=== PATIENT | male | born 1960 | race Caucasian/White ===

== ENCOUNTER → 2019-02-01 | Outpatient (CLI) | payer MEDICAID | LOC: M.MRI 16:45 | DX: M75.121 Complete rotator cuff tear or rupture of right shoulder, not specified as traumatic (principal) ==

== ENCOUNTER → 2019-04-22 | Outpatient (CLI) | payer MEDICAID | LOC: M.RAD 14:43 | DX: M19.012 Primary osteoarthritis, left shoulder (principal) ==

== ENCOUNTER → 2019-08-24 | Outpatient (CLI) | payer MEDICAID | LOC: M.LAB 08:30 → M.CT 08:30 → M.LAB 08:43 → M.CT 09:30 | PROVIDERS: ATTEND Surgery | DX: K50.90 Crohn's disease, unspecified, without complications (principal); R22.9 Localized swelling, mass and lump, unspecified ==

== ENCOUNTER → 2019-11-14 | Outpatient (CLI) | payer MEDICAID ==
[~2019-11-14] MED LIST: DULOXETINE HCL60 MG PO; INDERAL60 MG PO; OMEPRAZOLE 20 M20 M1 PO; PREGABALIN50 MG PO; QUETIAPINE FUM200 MG PO; STELARA90 MG/1 ML SUBQ; TIZANIDINE4 MG/1 TA1 PO
== END ==
LOC: M.LAB 16:30
PROVIDERS: ATTEND Surgery
DX: Z01.812 Encounter for preprocedural laboratory examination (principal); Z20.828 Contact with and (suspected) exposure to other viral communicable diseases

== ENCOUNTER → 2019-11-18 | Day surgery (SDC) | payer MEDICAID ==
[~2019-11-18] MED LIST changes: +LORCET 5-325 M1 EACH PO
[2019-11-18 06:59] LABS: HEMATOCRIT 45.2 % (42.0-52.0); HEMOGLOBIN 15.3 gm/dL (14.0-18.0); MCH 30.9 pg (26.0-34.0); MCHC 33.8 g/dL (28.0-37.0); MCV 91.4 fL (80.0-100.0); MPV 7.3 fl. (7.2-11.1); RBC 4.95 mil/uL (4.50-6.00); RDW-CV 16.4 % (10.5-14.5); WBC 7.2 thou/uL (4.0-11.0)
[2019-11-18 07:20] LABS: CALCIUM 8.1 mg/dL (8.5-10.1)
[2019-11-18 07:30] LABS: ALBUMIN 3.4 g/dL (3.4-5.0); TOTAL BILIRUBIN 0.4 mg/dL (<0.1-1.0)
--- NOTE | 2019-11-18 10:32 | EKG ---
[place] [address] ELECTROCARDIOGRAM REPORT Name: CLAUDETTE BRIAN Room: [facility].#: [id number] Admission: 11/18/19 Attend Phys: Divya Mendieta, Discharge: Date of : 62 Date of Service: 11/18/19722 Report #: [id number] THIS REPORT FOR: //name// [facility] Test Date: 2019-11-18 Test Time: 07:23:33 Pat Name: CLAUDETTE BRIAN Department: Room: Gender: Gel [employer]at Sprayer: : 1960 Requested By: Divya Mendieta Order Number: [id number] Reading MD: Phill Viera Measurements Intervals [place] Rate: 50 P: 47 [place]: 182 QRS: -6 QRSD: 101 T: 46 QT: 435 QTc: 397 Interpretive Statements Sinus rhythm Probable left atrial enlargement No previous ECG available for comparison Electronically Signed On 11-18-2019 10:32:46 CDT by Phill Viera [email or web address] <ELECTRONICALLY SIGNED> By: Phill Viera MD, [facility] 11/18/19 1032 2 2 Phill Viera MD, FACC /EPI
--- NOTE | 2019-11-23 11:07 | PATH ---
[address] [address] PATHOLOGY RPT PROCEDURE Name: KARL JAY Room: [facility]..#: [id number] Admission: 11/18/19 Date of : 62 Discharge: Report #: [id number] Path Case #: [id number] [facility] Accession Number: [id number] . 01 Material submitted: . back - RIGHT BACK MASS. Modifiers: right . 01 Clinical history: . BACK MASS . 02 Diagnosis: Right back mass: - Consistent with lipoma. (MEETA:khurram; 11/22/2019) MBR 11/22/2019 1542 Local . 02 Electronically signed: . Mohamud Conley MD, Pathologist NPI- [id number] . 01 Gross description: . The specimen is received in formalin, labeled "Karl Jay, right back mass" and consists of multiple irregular segments of yellow lobulated tissue measuring 8.8 x 6.4 x 3.6 cm. Sectioning reveals focal hemorrhage. Varnish Thinner sections are submitted in A1-A3. (SDY; 11/21/2019) SYU/SYU 11/22/2019 1541 Local . 02 Pathologist provided ICD-10: R22.2 . 02 CPT . 333257 Specimen Comment: A courtesy copy of this report has been sent to [phone] Specimen Comment: [phone] Specimen Comment: Report sent to / DR ANGELA Performed at: [address], [place], [place] [id number] MD Jose Carlos Anne MD Phone: [phone] Performed at: 02 [facility] [address], [place], [place] [id number] MD Mohamud Conley MD Phone: [phone]
--- NOTE | 2019-12-01 17:08 | OP ---
[address] [address] OPERATIVE REPORT Name: CLAUDETTE BRIAN Room: [facility].[place].#: [id number] Admission: 11/18/19 Attend Phys: Divya Mendieta DO Discharge: Date of : 62 Report #: [id number] THIS REPORT FOR: //name// cc: John Noyola MD, David L. MD ~ CC: Divya Noyola DATE OF SERVICE: 11/18/2019 PREOPERATIVE DIAGNOSIS: Right lower back mass. POSTOPERATIVE DIAGNOSIS: Right lower back subfascial mass. SURGEON: Divya Mendieta D.O. ANESTHESIA: General endotracheal. PROCEDURE: Excision of right lower back subfascial mass. SPECIMENS: Right back mass (8.4 x 7.9 x 2.3 cm). ESTIMATED BLOOD LOSS: 10 mL. COMPLICATIONS: None. INDICATIONS FOR THE PROCEDURE: The patient is a 59-year-old gentleman who presented to my office with complaints of an enlarging right lower back mass, which was causing increasing pain and discomfort. Imaging was performed without identifiable source; however, there was a palpable mass present. The patient has Crohn's and therefore the timing of his procedure was coordinated with his Solera injections. The patient was seen and examined. He was discussed the procedure including risks, benefits, and alternatives. All questions were answered to patient's satisfaction, informed consent was obtained. DESCRIPTION OF PROCEDURE: After the patient was brought back to the operating room and placed in supine position, general anesthesia was induced. SCDs were placed on bilateral lower extremities and prophylactic antibiotics were administered. Next, after a timeout was performed and the patient was placed in the left lateral decubitus position, the area was prepped and draped in the usual sterile fashion. Next, a 6-cm transverse incision was created with a #15 blade scalpel. Dissection was carried down to the subcutaneous tissues using Bovie cautery. Using palpation with an index finger, there was noted to be a firm mass deep to the subcutaneous tissue. The subcutaneous plane was opened noting the anterior fascia of the muscles. This was incised with Bovie cautery. Using finger dissection, a large multilobulated [place] [address] OPERATIVE REPORT Name: CLAUDETTE BRIAN Room: [facility].#: [id number] Admission: 11/18/19 Attend Phys: Divya Mendieta DO Discharge: Date of : 62 Report #: [id number] This was circumferentially dissected free from all of its surrounding tissues. The blood supply was then cauterized using Bovie cautery. Once the mass was freed, it was measured on the back table and measured 9.4 x 7.9 x 2.3 cm in size. At this time, the wound was then further palpated noting no additional firm masses within the region. The area was copiously irrigated with saline. Intermediate layered closure was then performed first reapproximating the fascia with a 3-0 Vicryl in an interrupted fashion, 3-0 Vicryl for a deep subcutaneous stitch as well as in the deep dermal plane as well as a 4-0 Monocryl in a subcuticular fashion. The area was then cleaned. Local anesthetic was infiltrated into the surgical sites. Dermabond was applied for sterile dressing. All sponge, instrument count was reported as correct at the end of the case. The patient tolerated the procedure well without any complications. He was awakened from anesthesia in the operating room and taken to PACU in stable condition for further recovery. <ELECTRONICALLY SIGNED> By: Divya Mendieta DO 12/01/19 1708 [id number] [id number] Mendieta DO /nt
== END | disposition home or self-care (01) ==
LOC: M.SUR
PROVIDERS: ATTEND Surgery
DX: D17.1 Benign lipomatous neoplasm of skin and subcutaneous tissue of trunk (principal); K50.90 Crohn's disease, unspecified, without complications; F32.9 Major depressive disorder, single episode, unspecified; K21.9 Gastro-esophageal reflux disease without esophagitis; G47.00 Insomnia, unspecified; Z98.890 Other specified postprocedural states; Z79.899 Other long term (current) drug therapy; Z88.0 Allergy status to penicillin; Z88.8 Allergy status to other drugs, medicaments and biological substances

== ENCOUNTER → 2019-12-23 | Outpatient (CLI) | payer MEDICAID | LOC: M.MRI 04-15 17:30 | PROVIDERS: ATTEND Internal Medicine | DX: S46.812A Strain of other muscles, fascia and tendons at shoulder and upper arm level, left arm, initial encounter (principal); X58.XXXA Exposure to other specified factors, initial encounter; Y93.89 Activity, other specified; Y92.89 Other specified places as the place of occurrence of the external cause; Y99.8 Other external cause status ==

== ENCOUNTER → 2020-01-30 | Outpatient (CLI) | payer MEDICAID ==
[~2020-01-30] MED LIST changes: +AMBIEN 10 MG TA10 MG PO; +PERCOCET 5-3251 EACH PO
== END ==
LOC: M.LAB 14:00
PROVIDERS: ATTEND Orthopaedic Surgery
DX: Z01.812 Encounter for preprocedural laboratory examination (principal); Z20.828 Contact with and (suspected) exposure to other viral communicable diseases

== ENCOUNTER → 2020-02-02 | Day surgery (SDC) | payer MEDICAID ==
[2020-02-02 11:27] LABS: HEMATOCRIT 46.4 % (42.0-52.0); HEMOGLOBIN 15.1 gm/dL (14.0-18.0); MCH 30.2 pg (26.0-34.0); MCHC 32.6 g/dL (28.0-37.0); MCV 92.8 fL (80.0-100.0); MPV 7.4 fl. (7.2-11.1); RBC 5.01 mil/uL (4.50-6.00); RDW-CV 15.4 % (10.5-14.5); WBC 5.1 thou/uL (4.0-11.0)
[2020-02-02 11:36] LABS: CALCIUM 8.9 mg/dL (8.5-10.1); CREATININE 1.1 mg/dL (0.6-1.3); POTASSIUM 4.9 mmol/L (3.5-5.1)
--- NOTE | 2020-02-07 09:06 | OP ---
[address] [address] OPERATIVE REPORT Name: CLAUDETTE BRIAN Room: [facility]#: [id number] Admission: 02/02/20 Attend Phys: Jose Luna II Discharge: Date of : 62 Report #: [id number] THIS REPORT FOR: //name// cc: Fercho Mercer Meng, Zhao ~ CC: Jose Brantley Meng DATE OF SERVICE: 02/03/2020 PREOPERATIVE DIAGNOSIS: Left shoulder rotator cuff tear. POSTOPERATIVE DIAGNOSES: 1. Left shoulder rotator cuff tear. 2. Biceps tendon tear. 3. Lateral clavicle osteoarthritis. 4. Bone and cartilage debris with labral tears, glenohumeral joint. 5. Subacromial impingement. PROCEDURES: 1. Left shoulder arthroscopic surgery with rotator cuff repair. 2. Biceps tenodesis. 3. Lateral clavicle excision. 4. Extensive debridement of labral tears in glenohumeral joint. 5. Subacromial decompression. SURGEON: Jose Luna II, DO SURVEILLANCE SENSOR OFFICER: ROSA MARIA Almazan ANESTHESIA: Per operative record. ESTIMATED BLOOD LOSS: Minimal. ANTIBIOTICS: Per operative record. DRAINS: None. COMPLICATIONS: None. CONDITION OF THE PATIENT: Stable to recovery room. DESCRIPTION OF PROCEDURE: The patient was taken to the operative suite and placed supine on the operating table, given appropriate anesthesia. The patient's affected shoulder was sterilely prepped and draped in a modified beach chair position and all bony prominences were well padded. The surgery began by [address] [address] OPERATIVE REPORT Name: CLAUDETTE BRIAN Room: [facility].#: [id number] Admission: 02/02/20 Attend Phys: Jose Luna II Discharge: Date of : 62 Report #: [id number] posterior portal incision. The arthroscope was advanced in the joint. There was shown to be a tear greater than 60% of the biceps tendon, in the anterior aspect of the glenoid and within the tendon substance. The anterior portal and cannula was established and the biceps tendon was secured utilizing a stitch. It was then snipped from the glenoid attachment and anchored to the bicipital groove anteriorly in the shoulder. This was probed and shown to be intact and secured. There was shown to be extensive bone and cartilage debris within the glenohumeral joint. This was debrided utilizing a shaver throughout the superior, inferior as well as anterior and posterior portions of the glenohumeral joint, utilizing a shaver to remove all bone and cartilage debris with an extensive debridement to be performed. The arthroscope was advanced in the subacromial space and subacromial decompression with partial anterior acromioplasty performed with significant impingement. The distal centimeter of lateral clavicle was excised utilizing a shaver to the distal centimeter of clavicle due to significant osteoarthritis at the AC joint. There was shown to be rotator cuff tear noted to the lateral margin of supraspinatus measuring approximately 1.3 cm. This was debrided utilizing a shaver to free edge down to fresh tissue. A bone bed was then repaired along the lateral humerus down to bleeding bone. Two suture tapes were then placed through the rotator cuff proximally. These were then placed in X configuration and anchored to the lateral humerus with 2 anchors. This was probed and shown to be intact with excellent repair of rotator cuff and full range of motion of the shoulder without evidence of re-tear. Final images were taken. The shoulder was drained of arthroscopic fluid, closed with 4-0 nylon in simple fashion. Dermabond and sterile dressing were then applied. The patient was transported to the recovery room in stable condition. Counts were correct throughout the procedure. <ELECTRONICALLY SIGNED> By: Jose Luna II, DO 02/07/2006 1 0926Jose Luna II, DO /nt
== END | disposition home or self-care (01) ==
LOC: M.SUR 05:44
PROVIDERS: ATTEND Orthopaedic Surgery
DX: M75.122 Complete rotator cuff tear or rupture of left shoulder, not specified as traumatic (principal); S43.492A Other sprain of left shoulder joint, initial encounter; S46.212A Strain of muscle, fascia and tendon of other parts of biceps, left arm, initial encounter; M75.42 Impingement syndrome of left shoulder; M19.012 Primary osteoarthritis, left shoulder; M24.112 Other articular cartilage disorders, left shoulder; M47.27 Other spondylosis with radiculopathy, lumbosacral region; M54.40 Lumbago with sciatica, unspecified side; F32.9 Major depressive disorder, single episode, unspecified; Z98.890 Other specified postprocedural states; Z79.899 Other long term (current) drug therapy; X58.XXXA Exposure to other specified factors, initial encounter; Y93.89 Activity, other specified; Y92.89 Other specified places as the place of occurrence of the external cause; Y99.8 Other external cause status

== ENCOUNTER → 2020-07-30 | Outpatient (CLI) | payer MEDICAID | LOC: M.RAD 14:33 | PROVIDERS: ATTEND Internal Medicine | DX: M25.78 Osteophyte, vertebrae (principal); R51.9 Headache, unspecified; M54.2 Cervicalgia ==

== ENCOUNTER → 2020-09-04 | Outpatient (CLI) | payer MEDICAID | LOC: M.RAD 14:16 | PROVIDERS: ATTEND Internal Medicine | DX: M46.96 Unspecified inflammatory spondylopathy, lumbar region (principal); M25.78 Osteophyte, vertebrae; M54.9 Dorsalgia, unspecified; G89.29 Other chronic pain; R51.9 Headache, unspecified; M54.5 Low back pain ==

== ENCOUNTER → 2020-09-10 | Outpatient (CLI) | payer MEDICAID | LOC: M.MRI 07:22 | PROVIDERS: ATTEND Internal Medicine | DX: R51.9 Headache, unspecified (principal); M54.9 Dorsalgia, unspecified; G89.29 Other chronic pain ==

== ENCOUNTER → 2020-10-11 | Outpatient (CLI) | payer MEDICAID | END | disposition home or self-care (01) | LOC: M.MRI 11:22 | PROVIDERS: ATTEND Internal Medicine | DX: R51.9 Headache, unspecified (principal); R93.0 Abnormal findings on diagnostic imaging of skull and head, not elsewhere classified ==

== ENCOUNTER → 2021-03-05 | Outpatient (CLI) | payer MEDICAID ==
[2021-03-05 12:56] LABS: ABSOLUTE EOSINOPHILS 0.2 thou/uL (0.0-0.7); ABSOLUTE LYMPHOCYTES 2.7 thou/uL (0.8-5.3); ABSOLUTE MONOCYTES 1.3 thou/uL (0.0-1.2); ABSOLUTE NEUTROPHILS 5.2 thou/uL (1.6-8.1); BASOPHILS 0.4 %; EOSINOPHILS 2.6 %; HEMATOCRIT 45.5 % (42.0-52.0); HEMOGLOBIN 15.2 gm/dL (14.0-18.0); LYMPHOCYTES 28.3 %; MCH 32.7 pg (26.0-34.0); MCHC 33.3 g/dL (28.0-37.0); MCV 98.1 fL (80.0-100.0); MONOCYTES 13.4 %; MPV 7.1 fl. (7.2-11.1); NUCLEATED RBCS 0 /100WBC; PLATELET COUNT* 216 thou/uL (150-400); POLYS 55.3 %; RBC 4.64 mil/uL (4.50-6.00); WBC 9.5 thou/uL (4.0-11.0)
[2021-03-05 13:10] LABS: ALBUMIN 3.5 g/dL (3.4-5.0); CALCIUM 8.2 mg/dL (8.5-10.1); CREATININE 1.3 mg/dL (0.6-1.3); TOTAL BILIRUBIN 0.6 mg/dL (<0.1-1.0); TOTAL PROTEIN 6.7 g/dL (6.4-8.2)
[2021-03-05 14:02] LABS: ESR (SEDRATE) 3 mm/hr (0-20)
== END ==
LOC: M.LAB 12:38
PROVIDERS: ATTEND Internal Medicine Gastroenterology
DX: K50.90 Crohn's disease, unspecified, without complications (principal)